=== PATIENT | female | born 1940 | race Two or more races ===

== ENCOUNTER 2022-12-08 17:31 | Inpatient (IN) | payer MEDICARE ==
[~2022-12-08] VITALS: Ht 157.5 cm; Wt 59.9 kg
--- NOTE | 2022-12-08 17:31 | NUR ---
PATIENT BIBA FROM HOME FOR R HIP PAIN S/P GROUND LEVEL FALL. A/O X 3.
[2022-12-08] MEDS ORDERED: oxyCODONE/APAP (5/325 MG) 1 UDTAB TABLET PO ONE (18:00)
--- NOTE | 2022-12-08 18:00 | NUR ---
BLOOD SAMPLES OBTAINED
[2022-12-08] MEDS ORDERED: oxyCODONE/APAP (5/325 MG) 1 UDTAB TABLET ONE (18:06)
[2022-12-08 18:23] LABS: BASOPHILS # (AUTO) 0.1 K/uL (0.0-0.2); BASOPHILS % (AUTO) 0.4 % (0.0-2.0); EOSINOPHILS % (AUTO) 1.4 % (0.0-6.0); HEMATOCRIT 37 % (33-45); LYMPHOCYTES # (AUTO) 1.6 K/uL (0.8-4.8); LYMPHOCYTES % (AUTO) 12.7 % (20.0-44.0); MEAN CORPUSCULAR HGB CONC 32 g/dl (31.0-36.0); MEAN CORPUSCULAR VOLUME 91 fL (82-100); MONOCYTES # (AUTO) 0.6 K/uL (0.1-1.30); MONOCYTES % (AUTO) 4.4 % (2.0-12.0); NEUTROPHILS # (AUTO) 10.4 K/uL (1.8-8.9); NEUTROPHILS % (AUTO) 81.1 % (43.0-81.0); PLATELET COUNT (AUTO) 227 K/uL (150-450); RED BLOOD CELL COUNT(AUTO) 4.13 MIL/uL (4.0-5.2); WHITE BLOOD COUNT (AUTO) 12.9 K/uL (4.3-11.0)
[2022-12-08 18:57] LABS: CALCIUM, SERUM 8.5 mg/dL (8.5-10.1); CREATININE 0.8 mg/dL (0.6-1.3); POTASSIUM 4.1 mmol/L (3.5-5.1)
[2022-12-08 19:01] LABS: ALBUMIN 3.4 g/dL (3.4-5.0); BILIRUBIN,DIRECT 0.1 mg/dL (0.0-0.2); BILIRUBIN,TOTAL 0.3 mg/dL (0.2-1.0); TOTAL PROTEIN, SERUM 6.8 g/dL (6.4-8.2)
--- NOTE | 2022-12-08 19:24 | NUR ---
COVID SWAB TAKEN
[2022-12-08] MEDS ORDERED: ONDANSETRON HCL/PF 4 MG/2 ML VIAL IVP PRN (22:00)
[2022-12-08] MEDS ORDERED: ACETAMINOPHEN 325 MG TABLET PO PRN (22:00)
--- NOTE | 2022-12-08 22:41 | NUR ---
REPORT GIVEN TO VANCE VARGAS FOR TUAN
--- NOTE | 2022-12-08 23:07 | NUR ---
US TECH AT PT'S BEDSIDE
--- NOTE | 2022-12-09 00:14 | NUR ---
PT TRANSFERRED TO 309-1 VIA ACLS PROTOCOL. VSS. ALL BELONGINGS WITH PT.
[2022-12-09 00:20] VITALS: BP 109/69
[2022-12-09] MEDS ORDERED: ENOXAPARIN SODIUM 40 MG/0.4 ML DISP.SYRIN SQ SCH ×2 (00:22→21:00)
[2022-12-09] MEDS: MORPHINE SULFATE INJ 2 MG/ML DISP.SYRIN IV PRN ×3 (00:28→08:41)
--- NOTE | 2022-12-09 00:31 | NUR ---
noc rn note patient c/o severe pain and not wanting to be moved a lot. Given Morphine 2mg as ordered PRN before further assessments. will re-assess.
--- NOTE | 2022-12-09 01:37 | NUR ---
ADMISSION NOTE PATIENT CAME IN UNIT AT 0018 AM, ACCOMPANIED BY 2 ER PERSONNELS, VIA [employer]. PATIENT IS A/OX4. NO S/S OF APPARENT DISTRESS ON ROOM AIR, BREATHING EVEN AND UNLABORED. C/O SEVERE PAIN ON LEFT HIP AT THE TIME-- MEDICATED. PER PATIENT SHE HAS ADVANCED DIRECTIVE AND IS DNR/DNI, PER HER HER CAN BRING IT IN-- PUT FULL CODE FOR NOW, PATIENT AGREEABLE. NEW ID BAND ON PATIENT. BELONGINGS CHECKED AND SIGNED FOR-- PATIENT HAS BILA. 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 IV SITE ON RT. AC #20G INTACT AND PATENT. SKIN ASSESSMENT DONE, SKIN INTACT. PER PATIENT SHE IS UP-TO-DATE WITH ALL HER IMMUNIZATIONS INCLUDING COVID. PER PATIENT SHE IS ALLERGIC TO TETANUS. PER PATIENT SHE TAKES WELLBUTRIN FOR HER DEPRESSION, TO BRING IN HOME MEDS. PATIENT MADE AWARE OF NPO EXCEPT MEDS STATUS. CONSENTS SIGNED FOR SCHEDULED ORIF OF L. HIP. PATIENT ORIENTED IN THE UNIT AND THE USE OF CALL LIGHT. SAFETY IN PLACE-- BED IN LOWEST LOCKED POSITION, CALL LIGHT WITHIN REACH, SIDE RAILS UP X2. WILL CONTINUE WITH THE PLAN OF CARE FOR PATIENT.
--- NOTE | 2022-12-09 04:28 | NUR ---
noc rn note patient c/o 10/10 pain on left hip, pulling pain with facial grimacing. Given morphine 2mg as ordered PRN. will re-assess.
[2022-12-09 06:30] LABS: BASOPHILS % (AUTO) 0.1 % (0.0-2.0); EOSINOPHILS % (AUTO) 0.2 % (0.0-6.0); HEMATOCRIT 28 % (33-45); LYMPHOCYTES # (AUTO) 1.7 K/uL (0.8-4.8); LYMPHOCYTES % (AUTO) 14.5 % (20.0-44.0); MEAN CORPUSCULAR HGB CONC 33 g/dl (31.0-36.0); MEAN CORPUSCULAR VOLUME 90 fL (82-100); MONOCYTES # (AUTO) 0.7 K/uL (0.1-1.30); NEUTROPHILS # (AUTO) 9.5 K/uL (1.8-8.9); NEUTROPHILS % (AUTO) 79.2 % (43.0-81.0); PLATELET COUNT (AUTO) 226 K/uL (150-450); RED BLOOD CELL COUNT(AUTO) 3.06 MIL/uL (4.0-5.2); WHITE BLOOD COUNT (AUTO) 11.9 K/uL (4.3-11.0)
--- NOTE | 2022-12-09 06:39 | NUR ---
noc rn note tried calling (Domingo) #[phone] AND #[phone], no answer. Left a message with hospital number to call. Will try again later.
--- NOTE | 2022-12-09 06:58 | NUR ---
ck rn note was able to reach #[phone], made aware of Room number and visitation hours also Patient was able to speak with her . aware of procedure and the time, patient made him aware.
[2022-12-09 07:00] VITALS: BP 125/61
[2022-12-09 07:06] LABS: ALBUMIN 2.8 g/dL (3.4-5.0); BILIRUBIN,TOTAL 0.6 mg/dL (0.2-1.0); CALCIUM, SERUM 8.1 mg/dL (8.5-10.1); CREATININE 0.7 mg/dL (0.6-1.3); MAGNESIUM 2.1 mg/dL (1.8-2.4); PHOSPHORUS 4.5 mg/dL (2.5-4.9); POTASSIUM 3.8 mmol/L (3.5-5.1); TOTAL PROTEIN, SERUM 5.7 g/dL (6.4-8.2)
--- NOTE | 2022-12-09 07:30 | NUR ---
MS RN OPENING NOTES RECEIVED PATIENT ON BED AWAKE AND A/O X4. ON ROOM AIR TOLERATING WELL. NO SOB NOTED. NOT IN DISTRESS. WITH COMPLAINTS OF PAIN AT THE LEFT HIP AT THE SCALE OF 8/10. COMFORT MEASURES IN PLACED. WITH MACK CATHETER IN PLACED DRAINING CLEAR YELLOW URINE. WITH IV ACCESS AT THE RIGHT AC G20 SALINE LOCKED, PATENT AND INTACT. ON NPO FOR LEFT HIP ORIF TODAY. SAFETY MEASURES IN PLACED. CALL LIGHT WITHIN REACH. BED ON LOWEST LOCKED POSITION, SIDE RAILS UP X2. WILL CONTINUE TO MONITOR.
--- NOTE | 2022-12-09 07:38 | NUR ---
noc rn note needs attended. report given to SAM obrien for continuity of patient care.
[2022-12-09] MEDS ORDERED: IV D5/ 0.9% NACL 1,000 ML IV PRN (09:30)
[2022-12-09 09:54] LABS: THYROID STIMULATING HORMONE 3.816 uIU/mL (0.358-3.74)
[2022-12-09] MEDS ORDERED: OXYB10TA30 PO (12:14)
[2022-12-09] MEDS ORDERED: BUPR-319 PO (12:14)
[2022-12-09] MEDS ORDERED: LEVO112T7 PO (12:14)
[2022-12-09] MEDS ORDERED: CARV6.252 PO (12:14)
[2022-12-09] MEDS ORDERED: LISI10TA29 PO (12:14)
[2022-12-09] MEDS ORDERED: RALO60TA14 PO (12:14)
[2022-12-09] MEDS ORDERED: QUET25TA PO (12:14)
[2022-12-09] MEDS: SOD FERRIC GLUC 125 MG in IV NS 0.9% 100 ML IV SCH (14:00)
--- NOTE | 2022-12-09 14:30 | NUR ---
RN NOTE PATIENT TRANSPORTED TO OR VIA HOSPITAL BED. PATIENT IS A/O X4, ON ROOM AIR TOLERATING WELL. NO SOB NOTED. NOT IN DISTRESS. WITH IV ACCESS AT THE LEFT AC G20 PATENT AND INTACT. CONSENT SIGNED, CHECKLIST COMPLETED.
[2022-12-09] MEDS ORDERED: FAMOTIDINE/PF INJ 20 MG/2 ML VIAL IV ONE (15:28)
[2022-12-09] MEDS ORDERED: KETOROLAC TROMETHAMINE INJ 30 MG/ML VIAL ONE (15:28)
[2022-12-09] MEDS ORDERED: FENTANYL PF 100MCG/2ML AMPUL ONE (15:29)
[2022-12-09] MEDS ORDERED: BUPIVACAINE 0.5 % PF 150 MG/30 ML VIAL ONE (15:30)
[2022-12-09] MEDS ORDERED: LIDOCAINE 2% JEL 5 ML TUBE ONE (15:49)
[2022-12-09 16:00] VITALS: BP 121/64
[2022-12-09] MEDS ORDERED: ALBUMIN 5% 12.5 GM in PREMIX 1 EA IV ONE ×7 (16:23→16:30)
[2022-12-09] MEDS ORDERED: BUPIVACAINE 0.25% 75 MG/30 ML VIAL ONE (16:27)
[2022-12-09] MEDS ORDERED: POLYMYXIN B SULFATE 500,000 UNITS ONE (16:27)
[2022-12-09] MEDS ORDERED: ACETAMINOPHEN 325 MG TABLET PO PRN (19:00)
[2022-12-09] MEDS ORDERED: MORPHINE SULFATE INJ 2 MG/ML DISP.SYRIN IV PRN (19:00)
[2022-12-09] MEDS ORDERED: BISACODYL SUPP (10 MG) 10 MG/SUPP.RECT SUPP.RECT RC PRN ×2 (19:30)
[2022-12-09] MEDS ORDERED: SENNOSIDES 8.6 MG TABLET PO PRN ×2 (19:30)
[2022-12-09] MEDS ORDERED: DOCUSATE SODIUM 100 MG CAPSULE PO PRN (19:30)
[2022-12-09] MEDS ORDERED: MORPHINE SULFATE 8 MG/ML VIAL IV PRN (19:30)
[2022-12-09] MEDS ORDERED: DOCUSATE SODIUM 250 MG CAPSULE PO PRN (19:30)
--- NOTE | 2022-12-09 19:30 | NUR ---
noc rn opening received patient in bed with eyes closed, easy to arouse. no s/s of apparent distress on room air. patient somnolent at this time, not exhibiting pain via flacc. Left hip dressing dry and intact with minimal blood stain. left hand #20g running LR from the OR. schmidt catheter draining via gravity draining clear dark yellow urine. safety in place-- bed in lowest, locked position, call light within reach, bed alarm in place, side rails up X4. will continue to monitor.
[2022-12-09 20:00] VITALS: BP 115/54
[2022-12-09 20:15] VITALS: BP 120/46
[2022-12-09] MEDS: ENOXAPARIN SODIUM 40 MG/0.4 ML DISP.SYRIN SQ SCH (21:00)
--- NOTE | 2022-12-09 21:15 | NUR ---
noc rn note- non-admin scheduled 2100 Lovenox held. Patient not even 12 hours post op
[2022-12-09 21:59] LABS: HEMOGLOBIN 5.9 g/dL (11.5-14.8)
--- NOTE | 2022-12-09 22:45 | NUR ---
noc rn note Lab called regarding critical H&H of 5.8 & 18. Messaged hospitalist Juan Miguel Ruth and ordered type and screen STAT and 1 unit PRBC. order carried out.
[2022-12-10] VITALS (7 sets, daily range): BP systolic 108–133; BP diastolic 40–71
[2022-12-10] MEDS ORDERED: CEFAZOLIN 1 GM in IV D5W 50 ML IV SCH ×2
[2022-12-10] MEDS: ANCEF 1 GM/50 ML D5W IV SCH ×4 (00:13→07:52)
--- NOTE | 2022-12-10 01:11 | NUR ---
noc rn note- Blood Transfusion Initial V/S follows: 108/53, hr-86, rr-12, t-98.7, saturation 99% on 2lpm of o2 via nc. Blood started @60ml/hr on left ac#18g. Will monitor for any transfusion reactions.
--- NOTE | 2022-12-10 01:32 | NUR ---
noc rn note- 15 minutes into transfusion V/S as follows: 112/44, hr-88, t-97.7, saturation 100% on 2lpm of o2, rr-12. No transfusion reaction noted. will cont. monitor. Increased rate to 120 mls/hr. Will check v/s 60 min after.
--- NOTE | 2022-12-10 02:33 | NUR ---
noc rn note 60 minutes into Blood transfusion, no transfusion reaction noted. V/S: 133/53, hr-79, saturation 95% on 2lpm of o2 via nc, rr-12, t-98.6. Will continue to monitor with rate 125mls/hr.
--- NOTE | 2022-12-10 03:47 | NUR ---
noc rn note transfusion ended at this time. V/S as follows: 130/71, hr- 97, rr-12, saturation 98% on 2lpm of o2 via nc, t- 98.2. Not exhibiting any transfusion reaction. Patient more alert at this time. will continue to monitor.
--- NOTE | 2022-12-10 04:08 | NUR ---
noc rn note patient verbalizing needing to urinate even with the schmidt in and I noticed only 200ml of urine in the schmidt 9 hours post op. Did bladder scan and only showed 83 ml of urine. checked schmidt and it is draining, no kink. Will cont to monitor for now.
[2022-12-10 06:27] LABS: BASOPHILS % (AUTO) 0.4 % (0.0-2.0); EOSINOPHILS % (AUTO) 0.7 % (0.0-6.0); HEMATOCRIT 24 % (33-45); HEMOGLOBIN 7.7 g/dL (11.5-14.8); LYMPHOCYTES # (AUTO) 2.2 K/uL (0.8-4.8); MEAN CORPUSCULAR HGB CONC 33 g/dl (31.0-36.0); MEAN CORPUSCULAR VOLUME 93 fL (82-100); MONOCYTES # (AUTO) 1.1 K/uL (0.1-1.30); NEUTROPHILS # (AUTO) 5.9 K/uL (1.8-8.9); NEUTROPHILS % (AUTO) 62.9 % (43.0-81.0); PLATELET COUNT (AUTO) 136 K/uL (150-450); RED BLOOD CELL COUNT(AUTO) 2.56 MIL/uL (4.0-5.2); WHITE BLOOD COUNT (AUTO) 9.4 K/uL (4.3-11.0)
[2022-12-10 06:51] LABS: CALCIUM, SERUM 7.4 mg/dL (8.5-10.1); CREATININE 1.1 mg/dL (0.6-1.3); MAGNESIUM 2.2 mg/dL (1.8-2.4); PHOSPHORUS 3.6 mg/dL (2.5-4.9); POTASSIUM 4.3 mmol/L (3.5-5.1); TOTAL PROTEIN, SERUM 5.2 g/dL (6.4-8.2)
--- NOTE | 2022-12-10 07:26 | NUR ---
MS RN OPENING NOTES RECEIVED PATIENT AWAKE IN BED IN NO ACUTE SIGNS OF DISTRESS. A/O X4. ABLE TO MAKE NEEDS KNOWN, NO C/O PAIN AT THIS TIME. DRESSINGS ON SURGICAL SITES ON LEFT HIP C/D/I. ON 02 VIA N/C @ 2LP, TOLERATING WELL, BREATHING EVEN AND UNLABORED. MACK CATHETER IN PLACE DRAINING CLEAR YELLOW URINE VIA GRAVITY. IV ACCESS ON LAC G#18 SALINE LOCKED, PATENT AND INTACT. SAFETY MEASURES IN PLACE: BED IN LOWEST LOCKED POSITION, BED ALARM ON AND SIDE-RAILS UP X2. CALL LIGHT WITHIN REACH. WILL CONTINUE TO MONITOR.
--- NOTE | 2022-12-10 07:28 | NUR ---
noc rn closing note needs attended. Report given to Vinnie, for continuity of patient care.
[2022-12-10] MEDS: HYDROCODONE/APAP 5/325MG TABLET PO PRN ×2 (11:05→18:52)
--- NOTE | 2022-12-10 11:06 | NUR ---
RN NOTES PT COMPLAINED OF ACHING LEFT HIP PAIN AFTER PHYSICAL THERAPY EVALUATION. 7/10 SCALE. PRN NORCO 5/325 MG PO GIVEN AT 1105. WILL CONTINUE TO MONITOR AND REASSESS PT.
--- NOTE | 2022-12-10 11:56 | NUR ---
RN NOTES PT'S TANA AT BEDSIDE, INFORMED HIM TO BRING PT'S HOME MED OXYBUTYNIN ER AND STATED THAT HE WILL BRING IT.
--- NOTE | 2022-12-10 14:41 | NUR ---
RN NOTES CALLED PHARMACY TO DELIVER FERRLECIT IV.
[2022-12-10] MEDS: SOD FERRIC GLUC 125 MG in IV NS 0.9% 100 ML IV SCH (14:54)
[2022-12-10 16:08] LABS: BILIRUBIN,URINE NEGATIVE (NEGATIVE); COLOR,URINE YELLOW (YELLOW); LEUKOCYTE ESTERASE ,URINE 2+ (NEGATIVE); NITRITE, URINE NEGATIVE (NEGATIVE); PH,URINE 5.5 (5.0-8.0); PROTEIN,URINE 2+ mg/dl (NEGATIVE); UGLUCOSE NEGATIVE (NEGATIVE); UROBILINOGEN,URINE 0.2 EU/dL (0.2)
[2022-12-10] MEDS: CARVEDILOL 6.25 MG TABLET PO SCH (17:00)
[2022-12-10] MEDS: QUETIAPINE FUMARATE 25 MG TABLET PO SCH (17:07)
[2022-12-10 17:23] LABS: BACTERIA,URINE 2+ /HPF (None Seen); RBC,URINE 81-100 /HPF (0-2); WBC,URINE 21-50 /HPF (0-3)
--- NOTE | 2022-12-10 17:49 | NUR ---
RN NOTES PATIENT U/A RESULT REPORTED TO DOCTOR GEORGE, POSITIVE FOR UTI. DOCTOR ORDERED ROCEPHIN 1GRAM Q 24HRS. WILL CARRY OUT ORDER
[2022-12-10] MEDS: CEFTRIAXONE 1 G in IV D5W 50 ML IV SCH (18:30)
--- NOTE | 2022-12-10 18:57 | NUR ---
CLOSING RN NOTES RECEIVED PATIENT AWAKE IN BED WITH HER , A/O X4. ABLE TO MAKE NEEDS KNOWN, COMPLAINING PAIN ON LEFT HIP. PATIENT HAS EDEMA ON HER RIGHT HAND AND ELEVATE IT USING PILLOW, DRESSINGS ON SURGICAL SITES ON LEFT HIP C/D/I. ON 02 VIA N/C @ 2LP, TOLERATING WELL, BREATHING EVEN AND UNLABORED. MACK CATHETER IN PLACE DRAINING CLOUDY URINE VIA GRAVITY. IV ACCESS ON LAC G#18 SALINE LOCKED, PATENT AND INTACT. SAFETY MEASURES IN PLACE: BED IN LOWEST LOCKED POSITION, BED ALARM ON AND SIDE-RAILS UP X2. CALL LIGHT WITHIN REACH. WILL CONTINUE TO MONITOR. Addendum: 12/10/22 at 1932 by GEOFFREY LOPEZ RN ADDENDUM: PT REFUSING TO BE REPOSITIONED Q 2HRS, ONLY PRN
--- NOTE | 2022-12-10 19:00 | NUR ---
RN OPENING NOTES PATIENT IS ASLEEP, A/O X 4. PT ABLE TO MAKE NEEDS KNOWN.PT IN NASAL CANULA OF 2L O2, TOLERATING WELL. BREATHING EVEN AND UNLABORED AT THIS TIME. PT IV ACCESS ON LEFT AC #18G SALINE LOCK, PATENT, INTACT AND FLUSHES WELL WITH NO S/S OF INFILTRATION. ON IV SITE. RIGHT ARM IS SWOLLEN AND IS ELEVATED. PT IS ON MACK CATHETER IN PLACE DRAINING CLOUDY YELLOW URINE. SAFETY MEASURES IS IN PLACE. BED PLACED IN LOWEST AND LOCKED POSITION, SIDE RAILS UP BY 2X, BEDSIDE TABLE AND CALL LIGHT IS EASY REACH. BED ALARM IS ON. WILL CONTINUE TO MONITOR PT ACCORDINGLY.
[2022-12-10] MEDS: ENOXAPARIN SODIUM 40 MG/0.4 ML DISP.SYRIN SQ SCH (20:59)
--- NOTE | 2022-12-10 20:59 | NUR ---
LOVENOX HELD DUE TO PT POST SURGERY ON LEFT HIP.
[2022-12-11] VITALS (8 sets, daily range): BP systolic 102–132; BP diastolic 40–61
[2022-12-11] MEDS: LEVOTHYROXINE SODIUM 112 MCG TABLET PO SCH (06:33)
[2022-12-11 06:35] LABS: ALBUMIN 2.3 g/dL (3.4-5.0); BILIRUBIN,TOTAL 0.4 mg/dL (0.2-1.0); CALCIUM, SERUM 7.3 mg/dL (8.5-10.1); CREATININE 0.8 mg/dL (0.6-1.3); MAGNESIUM 2.3 mg/dL (1.8-2.4); PHOSPHORUS 2.3 mg/dL (2.5-4.9); POTASSIUM 3.8 mmol/L (3.5-5.1); TOTAL PROTEIN, SERUM 4.7 g/dL (6.4-8.2)
--- NOTE | 2022-12-11 06:40 | NUR ---
RN CLOSING NOTES PATIENT IS ASLEEP, A/O X 4. PT ABLE TO MAKE NEEDS KNOWNS.PT IN NASAL CANULA OF 2L O2, TOLERATING WELL. BREATHING EVEN AND UNLABORED AT THIS TIME. PT IV ACCESS ON LEFT AC #18G SALINE LOCK, PATENT, INTACT AND FLUSHES WELL WITH NO S/S OF INFLITRATION. ON IV SITE. RIGHT ARM IS SWOLLEN AND IS ELEVATED. PT IS ON MACK CATHETER IN PLACE DRAINING CLOUDY YELLOW URINE. MEDICATION ADMINISTERED ACCORDINGLY. SAFETY MEASURES IS IN PLACE. BED PLACED IN LOWEST AND LOCKED POSITION, SIDE RAILS UP BY 2X, BEDSIDE TABLE AND CALL LIGHT IS EASY REACH. BED ALARM IS ON. WILL ENDORSE TO THE NEXT SHIFT FOR CONTINUITY OF CARE.
[2022-12-11 07:09] LABS: BASOPHILS % (AUTO) 0.4 % (0.0-2.0); EOSINOPHILS % (AUTO) 0.6 % (0.0-6.0); LYMPHOCYTES # (AUTO) 1.8 K/uL (0.8-4.8); LYMPHOCYTES % (AUTO) 22.4 % (20.0-44.0); MEAN CORPUSCULAR HGB CONC 34 g/dl (31.0-36.0); MEAN CORPUSCULAR VOLUME 90 fL (82-100); MONOCYTES % (AUTO) 12.9 % (2.0-12.0); NEUTROPHILS % (AUTO) 63.7 % (43.0-81.0); PLATELET COUNT (AUTO) 113 K/uL (150-450); WHITE BLOOD COUNT (AUTO) 7.9 K/uL (4.3-11.0)
--- NOTE | 2022-12-11 07:16 | NUR ---
MS RN OPENING NOTES RECEIVED PATIENT AWAKE IN BED, A/O X4. ABLE TO MAKE NEEDS KNOWN, NO COMPLAINT OF PAIN AT THIS TIME. DRESSINGS ON SURGICAL SITES ON LEFT HIP C/D/I. ON 02 VIA N/C @ 2LP, TOLERATING WELL, BREATHING EVEN AND UNLABORED. MACK CATHETER IN PLACE DRAINING SLIGHTLY CLOUDY URINE VIA GRAVITY. IV ACCESS ON LAC G#18 SALINE LOCKED, PATENT AND INTACT. SAFETY MEASURES IN PLACE: BED IN LOWEST LOCKED POSITION, BED ALARM ON AND SIDE-RAILS UP X2. CALL LIGHT WITHIN REACH. WILL CONTINUE TO MONITOR.
[2022-12-11 07:52] LABS: RED BLOOD CELL COUNT(AUTO) 1.87 MIL/uL (4.0-5.2)
[2022-12-11 07:53] LABS: HEMOGLOBIN 5.7 g/dL (11.5-14.8)
[2022-12-11 07:54] LABS: HEMATOCRIT 17 % (33-45)
--- NOTE | 2022-12-11 08:05 | NUR ---
RN NOTES RECEIVED CALL FROM LAB THAT PT HAS CRITICAL LOW HGB 5.[address] VAZQUEZ MADE AWARE WITH ORDER TO ADMINISTER PRBC X1. WILL CARRY OUT ORDER.
[2022-12-11] MEDS: RALOXIFENE 60 MG TABLET PO SCH (08:20)
[2022-12-11] MEDS: CARVEDILOL 6.25 MG TABLET PO SCH ×2 (08:22→17:00)
[2022-12-11] MEDS: BUPROPION XL 150 MG TAB.ER.24 PO SCH (08:25)
[2022-12-11] MEDS: LISINOPRIL (10MG) 10 MG TABLET PO SCH (08:27)
[2022-12-11 09:29] LABS: LYMPHOCYTES % (MANUAL) 25 % (16-48); MONOCYTES % (MANUAL) 9 % (0-11.0); NEUTROPHILS % (MANUAL) 66 (42-76)
--- NOTE | 2022-12-11 09:45 | NUR ---
WOUND CARE CONSULT: PT PRESENTS WITH RT ARM SKIN TEAR WITH SOME EDEMA AND INTACT EDEMA BLISTERS TO LEFT LATERAL LEG (NEAR LOWER SURGICAL SITE). RECOMMENDATIONS MADE FOR SKIN PROTECTION AND WOUND CARE. DISCUSSED WITH NURSING STAFF. IN AGREEMENT WITH PLAN OF CARE. MARTINA WONG NOTED. Addendum: 12/11/22 at 0947 by SARAH BROOKE WNDNU Amended: Links added.
--- NOTE | 2022-12-11 10:09 | NUR ---
RN NOTES PATIENT STARTED ON BLOOD TRANSFUSION VIA IV ACCESS ON LEFT AC G#20 @60ML/PER HOUR WITH PRBC X1 ORDERED. VITAL SIGNS CHECKED AND RECORDED. WILL MONITOR FOR ANY SIGNS OF ALLERGIC/ADVERSE REACTIONS.
--- NOTE | 2022-12-11 10:26 | NUR ---
RN NOTES NO SIGNS OF ALLERGIC/ADVERSE REACTIONS AFTER 15 MINUTES OF INITIATING BLOOD TRANSFUSION. V/S CHECKED, STABLE AND RECORDED. WILL CONTINUE TO MONITOR..
[2022-12-11] MEDS: OXYBUTYNIN 10 MG PO SCH (13:23)
--- NOTE | 2022-12-11 13:43 | NUR ---
RN NOTES BLOOD TRANSFUSION OF PRBC X1 COMPLETED AND TOLERATED WELL BY PT. NO SIGNS OF ALLERGIC/ADVERSE REACTIONS NOTED. V/S CHECKED, STABLE AND RECORDED.
--- NOTE | 2022-12-11 15:30 | NUR ---
RN NOTES CALLED PHARMACY TWICE TO SEND FERRLECIT, BUT THEY DON'T DELIVER IT ON TIME.
[2022-12-11] MEDS ORDERED: K PHOS NEUTRAL 250 MG TABLET PO ONE (16:00)
[2022-12-11] MEDS: SOD FERRIC GLUC 125 MG in IV NS 0.9% 100 ML IV SCH (16:28)
[2022-12-11] MEDS: QUETIAPINE FUMARATE 25 MG TABLET PO SCH (17:11)
[2022-12-11] MEDS: CEFTRIAXONE 1 G in IV D5W 50 ML IV SCH (17:39)
--- NOTE | 2022-12-11 17:39 | NUR ---
RN NOTES IV ACCESS ON RAC G# 18 NOTED LEAKING AND WAS REMOVED, DRY DRESSING APPLIED AT SITE. NEW IV ACCESS INSERTED AT RFA G#22, DATED AND SECURED WITH TAPE.
--- NOTE | 2022-12-11 18:54 | NUR ---
RN CLOSING NOTES PATIENT IS ASLEEP, A/O X 4. PT ABLE TO MAKE NEEDS KNOWN. PT IN NASAL CANULA OF 2L O2, TOLERATING WELL. BREATHING EVEN AND UNLABORED AT THIS TIME. PT IV ACCESS ON LEFT FA #22G SALINE LOCK, PATENT, INTACT AND FLUSHES WELL WITH NO S/S OF INFLITRATION ON IV SITE. RIGHT ARM IS SWOLLEN AND IS ELEVATED. PT IS ON MACK CATHETER IN PLACE DRAINING CLOUDY YELLOW URINE. MEDICATION ADMINISTERED ACCORDINGLY. SAFETY MEASURES IS IN PLACE. BED PLACED IN LOWEST AND LOCKED POSITION, SIDE RAILS UP BY 2X, BEDSIDE TABLE AND CALL LIGHT IS EASY REACH. BED ALARM IS ON. WILL ENDORSE TO THE NEXT SHIFT FOR CONTINUITY OF CARE.
--- NOTE | 2022-12-11 20:00 | NUR ---
MS PARENT COACH INITIAL NOTES RECEIVED REPORT FROM AM NURSE FAIZAN AND CHECKED THE PATIENT SHE'S AWAKE AND ALERT X 4, WITH HER FAMILY AT THE BEDSIDE . PT ABLE TO MAKE NEEDS KNOWN. PT IN NASAL CANULA OF 2L O2, TOLERATING WELL. BREATHING EVEN AND UNLABORED AT THIS TIME. PT IV ACCESS ON LEFT AC #18G SALINE LOCK, PATENT, INTACT AND FLUSHES WELL WITH NO S/S OF INFILTRATION. ON IV SITE. RIGHT ARM IS SWOLLEN AND IS ELEVATED. PT IS ON MACK CATHETER IN PLACE DRAINING CLOUDY YELLOW URINE. SAFETY MEASURES IS IN PLACE. BED PLACED IN LOWEST AND LOCKED POSITION, SIDE RAILS UP BY 2X, BEDSIDE TABLE AND CALL LIGHT IS EASY REACH. BED ALARM IS ON. WILL CONTINUE TO MONITOR PT ACCORDINGLY.
[2022-12-11] MEDS: ENOXAPARIN SODIUM 40 MG/0.4 ML DISP.SYRIN SQ SCH (21:00)
--- NOTE | 2022-12-12 | NUR ---
ms pipe insulator notes checked pt she's sleeping comfortably in bed without any discomfort noted. breathing even and non-labored , kept her warm and comfortable at all times. will continue monitoring.
[2022-12-12 06:41] LABS: BASOPHILS % (AUTO) 0.5 % (0.0-2.0); HEMATOCRIT 23 % (33-45); HEMOGLOBIN 7.7 g/dL (11.5-14.8); LYMPHOCYTES # (AUTO) 2.2 K/uL (0.8-4.8); LYMPHOCYTES % (AUTO) 24.7 % (20.0-44.0); MEAN CORPUSCULAR HGB CONC 33 g/dl (31.0-36.0); MEAN CORPUSCULAR VOLUME 92 fL (82-100); MONOCYTES % (AUTO) 11.4 % (2.0-12.0); NEUTROPHILS # (AUTO) 5.4 K/uL (1.8-8.9); NEUTROPHILS % (AUTO) 62.4 % (43.0-81.0); PLATELET COUNT (AUTO) 127 K/uL (150-450); RED BLOOD CELL COUNT(AUTO) 2.54 MIL/uL (4.0-5.2); WHITE BLOOD COUNT (AUTO) 8.7 K/uL (4.3-11.0)
[2022-12-12 07:00] VITALS: BP 141/61
--- NOTE | 2022-12-12 07:15 | NUR ---
MS RN OPENING NOTES RECEIVED PATIENT AWAKE A/O X 4, PT ABLE TO MAKE NEEDS KNOWN. PT IN NASAL CANULA OF 2L O2, TOLERATING WELL. BREATHING EVEN AND UNLABORED AT THIS TIME. PT IV ACCESS ON LEFT AC #18G SALINE LOCK, PATENT, INTACT AND FLUSHES WELL WITH NO S/S OF INFILTRATION. ON IV SITE. RIGHT ARM IS SWOLLEN AND IS ELEVATED. PT IS ON MACK CATHETER IN PLACE DRAINING CLOUDY YELLOW URINE. SAFETY MEASURES IS IN PLACE. BED PLACED IN LOWEST AND LOCKED POSITION, SIDE RAILS UP BY 2X, BEDSIDE TABLE AND CALL LIGHT IS EASY REACH. BED ALARM IS ON. WILL CONTINUE TO MONITOR THE PT
--- NOTE | 2022-12-12 07:15 | NUR ---
MS SECURITY DIRECTOR CLOSING NOTES PT JUST WOKE UP , SLEPT WELL AND STABLE THROUGHOUT THE NIGHT. NOT IN ANY ACUTE DISTRESS OR ANY DISCOMFORT. MACK TO GRAVITY AND DRAINING WELL. MORNING CARE DONE WITH THE HELPED OF AIRCRAFT INSTRUMENT MECHANIC . DRESSING DRY AND INTACT. KEPT HER WARM AND COMFORTABLE AT ALL TIMES. BED IN LOW AND LOCK IN POSITION WITH SIDE RAILS X2 UP AND BED ALARM SET FOR SAFETY. ENDORSE TO AM NURSE FOR CONTINUITY OF CARE.
[2022-12-12 07:20] LABS: ALANINE AMINOTRANSFERASE 16 U/L (12-78); ALKALINE PHOSPHATASE 38 U/L (46-116); ASPARTATE AMINOTRANSFERASE 19 U/L (15-37); BILIRUBIN,TOTAL 0.6 mg/dL (0.2-1.0); CALCIUM, SERUM 7.5 mg/dL (8.5-10.1); CARBON DIOXIDE 27 mmol/L (21-32); CHLORIDE 108 mmol/L (98-107); CREATININE 0.7 mg/dL (0.6-1.3); GLUCOSE 102 mg/dL (74-106); MAGNESIUM 2.5 mg/dL (1.8-2.4); PHOSPHORUS 2.7 mg/dL (2.5-4.9); POTASSIUM 3.8 mmol/L (3.5-5.1); SODIUM SERUM 139 mmol/L (136-145); TOTAL PROTEIN, SERUM 4.8 g/dL (6.4-8.2); UREA NITROGEN, BLOOD 18 mg/dL (7-18)
[2022-12-12] MEDS: LEVOTHYROXINE SODIUM 112 MCG TABLET PO SCH (08:10)
[2022-12-12] MEDS: BUPROPION XL 150 MG TAB.ER.24 PO SCH (08:10)
[2022-12-12] MEDS: RALOXIFENE 60 MG TABLET PO SCH (08:10)
[2022-12-12] MEDS: LISINOPRIL (10MG) 10 MG TABLET PO SCH (08:11)
[2022-12-12] MEDS: CARVEDILOL 6.25 MG TABLET PO SCH ×2 (08:11→17:13)
[2022-12-12] MEDS: OXYBUTYNIN 10 MG PO SCH (09:25)
[2022-12-12] MEDS: HYDROCODONE/APAP 5/325MG TABLET PO PRN ×2 (10:01→23:16)
[2022-12-12] MEDS: SOD FERRIC GLUC 125 MG in IV NS 0.9% 100 ML IV SCH (15:10)
[2022-12-12 16:00] VITALS: BP 138/58
[2022-12-12] MEDS: CEFTRIAXONE 1 G in IV D5W 50 ML IV SCH (17:12)
[2022-12-12] MEDS: QUETIAPINE FUMARATE 25 MG TABLET PO SCH (17:12)
--- NOTE | 2022-12-12 18:58 | NUR ---
RN CLOSING NOTES PATIENT IS AWAKE, A/O X 4. PT ABLE TO MAKE NEEDS KNOWN. PT IN NASAL CANULA OF 2L O2, TOLERATING WELL. BREATHING EVEN AND UNLABORED AT THIS TIME. PT IV ACCESS ON LEFT FA #22G HL LOCK, PATENT, INTACT AND FLUSHES WELL WITH NO S/S OF INFILTRATION ON IV SITE. RIGHT ARM IS SWOLLEN AND IS ELEVATED. PT IS ON MCAK CATHETER IN PLACE DRAINING CLOUDY YELLOW URINE. MEDICATION ADMINISTERED ACCORDINGLY. SAFETY MEASURES IS IN PLACE. BED PLACED IN LOWEST AND LOCKED POSITION, SIDE RAILS UP BY 2X, BEDSIDE TABLE AND CALL LIGHT IS EASY REACH. BED ALARM IS ON. WILL ENDORSE TO THE POCKET SETTER RN FOR CONTINUITY OF CARE.
--- NOTE | 2022-12-12 19:45 | NUR ---
MS RN OPENING NOTES RECEIVED PATIENT IN BED AWAKE, ALERT AND ORIENTED. A/O X 4. NO S/S OF PAIN NOTED AT THIS TIME. ON 2L OXYGEN VIA NC, BREATHING EVEN AND UNLABORED, NO DISTRESS OR SOB NOTED. IV ACCESS LFA #22G HL INTACT, PATENT AND FLUSHING WELL. HAS A MACK CATHETER IN PLACE AND DRAINING YELLOW COLORED URINE. SAFETY MEASURES IN PLACE, BED ALRAM ON, BED ON LOW AND LOCK POSITION. CALL LIGHT AND TABLE WITHIN EASY REACH. WILL CONTINUE WITH THE PLAN OF CARE.
[2022-12-12 20:00] VITALS: BP 116/55
[2022-12-12 20:31] LABS: HEMOGLOBIN 7.7 g/dL (11.5-14.8)
[2022-12-12] MEDS: ENOXAPARIN SODIUM 40 MG/0.4 ML DISP.SYRIN SQ SCH (21:00)
--- NOTE | 2022-12-12 21:10 | NUR ---
RN NOTES- LOVENOX HELD HELD LOVENOX DUE TO SIGNS OF BLEEDING.
--- NOTE | 2022-12-12 23:25 | NUR ---
RN NOTES PATIENT WAS ASKING TO BE PULLED UP AND SHOUTED WHEN WE TRIED. WE ASKED THE PATIENT IF WE CAN CHANGE THE SHEETS WELL CLEAN HER BUT SHE NEEDS TO BE ON HER SIDE BUT REFUSED. KEEPS ON THREATENING US THAT SHE WILL REPORT US BECAUSE SHE IS CLAIMING THAT SHE WAS NOT CARED PROPERLY WHEN I WAS ALWAYS ATTENDING TO HER NEEDS. ASKED THE PATIENT IF SHE WANTS TO HAVE A PAIN MEDICATION SO WE CAN MOVE HER AND WILL ALLEVIATE PAIN. SHE REFUSED MORPHINE BUT AGREED ON TAKING NORCO. EXPLAINED TO THE PATIENT THAT WE CANNOT GUARANTEE THAT IT WILL BE PAIN FREE BUT WE WILL DO IT VERY SLOWLY AND WILL TRY EVERYTHING TO BE LESS PAINFUL POSSIBLE. PATIENT REFUSED TO HAVE THE DRESSING CHANGED BUT INSTEAD ASKED TO BE CHANGED AROUND 08:00AM. WILL CONTINUE TO MONITOR THE PATIENT.
[2022-12-13 06:11] LABS: BASOPHILS % (AUTO) 0.5 % (0.0-2.0); EOSINOPHILS % (AUTO) 2.2 % (0.0-6.0); HEMATOCRIT 23 % (33-45); HEMOGLOBIN 7.7 g/dL (11.5-14.8); LYMPHOCYTES # (AUTO) 2.5 K/uL (0.8-4.8); LYMPHOCYTES % (AUTO) 28.2 % (20.0-44.0); MEAN CORPUSCULAR HGB CONC 33 g/dl (31.0-36.0); MEAN CORPUSCULAR VOLUME 92 fL (82-100); MONOCYTES # (AUTO) 0.9 K/uL (0.1-1.30); MONOCYTES % (AUTO) 10.1 % (2.0-12.0); NEUTROPHILS # (AUTO) 5.1 K/uL (1.8-8.9); PLATELET COUNT (AUTO) 167 K/uL (150-450); WHITE BLOOD COUNT (AUTO) 8.7 K/uL (4.3-11.0)
[2022-12-13 06:56] LABS: CALCIUM, SERUM 7.7 mg/dL (8.5-10.1); CARBON DIOXIDE 29 mmol/L (21-32); CHLORIDE 103 mmol/L (98-107); CREATININE 0.7 mg/dL (0.6-1.3); GLUCOSE 96 mg/dL (74-106); MAGNESIUM 2.4 mg/dL (1.8-2.4); PHOSPHORUS 3.3 mg/dL (2.5-4.9); POTASSIUM 4.2 mmol/L (3.5-5.1); SODIUM SERUM 135 mmol/L (136-145); UREA NITROGEN, BLOOD 15 mg/dL (7-18)
[2022-12-13 07:00] VITALS: BP 153/72
--- NOTE | 2022-12-13 07:02 | NUR ---
MS RN CLOSING NOTES PATIENT IN BED AWAKE, ALERT AND ORIENTED. A/O X 4. NO S/S OF PAIN NOTED AT THIS TIME. ON 2L OXYGEN VIA NC, BREATHING EVEN AND UNLABORED, NO DISTRESS OR SOB NOTED. IV ACCESS LFA #22G HL INTACT, PATENT AND FLUSHING WELL. HAS A MACK CATHETER IN PLACE AND DRAINED 650CC YELLOW COLORED URINE. SAFETY MEASURES IN PLACE, BED ALRAM ON, BED ON LOW AND LOCK POSITION. CALL LIGHT AND TABLE WITHIN EASY REACH. WILL ENDORSE TO THE NEXT SHIFT.
--- NOTE | 2022-12-13 07:50 | NUR ---
MS RN OPENING NOTE Patient in bed, awake. A/O x 4, able to make needs known. On room air, breathing evenly and unlabored. No SOB or s/s distress noted. IV access on LFA #22 SL, intact and patent. Kat catheter in place draining to a yellow colored urine. Safety precautions in place: bed in low, locked position; siderails up x 2, call light within reach. Will continue to monitor.
[2022-12-13] MEDS: RALOXIFENE 60 MG TABLET PO SCH (08:52)
[2022-12-13] MEDS: BUPROPION XL 150 MG TAB.ER.24 PO SCH (08:52)
[2022-12-13] MEDS: OXYBUTYNIN 10 MG PO SCH (08:52)
[2022-12-13] MEDS: LEVOTHYROXINE SODIUM 112 MCG TABLET PO SCH (08:52)
[2022-12-13] MEDS: LISINOPRIL (10MG) 10 MG TABLET PO SCH (08:53)
[2022-12-13] MEDS: CARVEDILOL 6.25 MG TABLET PO SCH ×2 (08:53→17:19)
[2022-12-13] MEDS: HYDROCODONE/APAP 5/325MG TABLET PO PRN (10:36)
[2022-12-13] MEDS ORDERED: FERR325T23 PO (11:07)
[2022-12-13] MEDS ORDERED: ENOX40DI SQ (11:07)
[2022-12-13] MEDS: SOD FERRIC GLUC 125 MG in IV NS 0.9% 100 ML IV SCH (14:43)
[2022-12-13 16:00] VITALS: BP 140/87
[2022-12-13] MEDS ORDERED: ENSURE ENLIVE CHOC 237 ML CAN PO SCH (17:00)
[2022-12-13] MEDS ORDERED: PROSOURCE / PROSTAT (PYXIS) 30 ML UDC GT SCH (17:00)
[2022-12-13] MEDS: QUETIAPINE FUMARATE 25 MG TABLET PO SCH (17:18)
[2022-12-13 17:19] VITALS: BP 140/87
[2022-12-13] MEDS: CEFTRIAXONE 1 G in IV D5W 50 ML IV SCH (17:19)
--- NOTE | 2022-12-13 19:40 | NUR ---
MS RN CLOSING NOTE Patient in bed, resting. A/O x 4, able to make needs known. Stable on room air, breathing evenly and unlabored. No SOB or s/s distress noted. IV access on LFA #22 SL, intact and patent. Kat catheter in place draining to a yellow colored urine. All needs attended to. Due meds given. Wound care done, as ordered. Safety precautions in place: bed in low, locked position; siderails up x 2, call light within reach. Will endorse to shift foreman nurse for TUAN.
--- NOTE | 2022-12-13 20:30 | NUR ---
MS PROFESSOR OF THEATRE NOTES PATIENT DISCHARGE IN STABLE MEDICAL CONDITION. A/O X 4. V/S TAKEN, STABLE AND RECORDED. NO IV ACCESS. NAME ARM BAND REMOVED. ALL BELONGINGS CHECKED AND BELONGINGS LIST SIGNED. HEALTH TEACHING AND DISCHARGE INSTRUCTIONS GIVEN AND VERBALIZED UNDERSTANDING. INSTRUCTED PATIENT TO MAKE AN APPOINTMENT WITH HIS PRIMARY DOCTOR. DISCUSSED PRESCRIPTIONS WITH PATIENT. PATIENT LEFT UNIT VIA GURNEY WITH NO SIGNS OF DISTRESS. CHARGE NURSE AWARE OF DISCHARGE.
== END 2022-12-13 20:41 | DRG 481 ==
LOC: ER 17:50 → MED 22:28
PROVIDERS: ADMIT Internal Medicine; ATTEND Internal Medicine
PROC: 0QS706Z Reposition Left Upper Femur with Intramedullary Internal Fixation Device, Open Approach (ICD-10-PCS; principal; 2022-12-09)
PROC: 30233N1 Transfusion of Nonautologous Red Blood Cells into Peripheral Vein, Percutaneous Approach (ICD-10-PCS; 2022-12-10)
DX: S72.142A Displaced intertrochanteric fracture of left femur, initial encounter for closed fracture (principal); E87.1 Hypo-osmolality and hyponatremia; E86.1 Hypovolemia; W01.0XXA Fall on same level from slipping, tripping and stumbling without subsequent striking against object, initial encounter; D72.829 Elevated white blood cell count, unspecified; E88.09 Other disorders of plasma-protein metabolism, not elsewhere classified; Z87.891 Personal history of nicotine dependence; Z20.822 Contact with and (suspected) exposure to COVID-19; Y92.000 Kitchen of unspecified non-institutional (private) residence as the place of occurrence of the external cause; Y93.89 Activity, other specified; D50.0 Iron deficiency anemia secondary to blood loss (chronic); I10 Essential (primary) hypertension
CPT/HCPCS: 36415; 71045-TC; 73020; 73552; 80048-TC; 80053-TC; 80061-TC; 80076-TC; 81001; 82728-TC; 83540-TC; 83735-TC; 84100-TC; 84439-TC; 84443-TC; 85025-TC; 85027-TC; 85730-TC; 86850-TC; 87081-TC; 87086-TC; 93307-TC; 97116-TC; 97530-TC; A4216; A4217; A4223; A6209; A6253; A6403; C1713; C9803; G0378; J0330; J0690; J0696; J1100; J1650; J1885; J2270; J2370; J2405; J2704; J2765; J2916; J3010; J3490; J7030; J7042; J7050; J7060; P9016; P9045